=== PATIENT | female | born 1970 | race Caucasian/White ===

== ENCOUNTER 2021-08-25 13:43 | Outpatient (CLI) | payer OTHER ==
--- NOTE | 2021-09-01 16:06 | Mammography Report ---
BILATERAL DIGITAL SCREENING MAMMOGRAM 3D/2D: 08/25/2021 CLINICAL: Routine screening. No prior exams were available for comparison. There are scattered fibroglandular elements in both br easts. No significant masses, calcifications, or other findings are seen in either breast. IMPRESSION: NEGATIVE There is no mammographic evidence of malignancy. A 1 year screening mammogram is recommended. This exam was interpreted at Station ID: [id number]. NOTE: For mammograms, a report in lay terms will be sent to the patient. Approximately 15% of breast malignancies will not be visualized mammographically. In the management of a palpable breast mass, a negative mammogram must not discourage biopsy of a clinically suspicious lesion. Electronically Signed By: Kandis sher/alina:09/01/2021 10:43:29 ACR BI-RADS Category 1: Negative 3341F PARENCHYMAL PATTERN: (A) - The breast(s) demonstrate(s) scattered fibroglandular densities. BI-RADS CATEGORY: (1) - 1 RECOMMENDATION: (ANNUAL) - Recommend routine annual screening mammography. [id number] 1 year screening LATERALITY: (B)
== END 2021-08-25 13:44 | disposition home or self-care (01) ==
LOC: DI.N 13:43
PROVIDERS: ATTEND Family Medicine
DX: Z12.31 Encounter for screening mammogram for malignant neoplasm of breast (principal)

== ENCOUNTER 2022-06-30 11:22 | Emergency (ER) | payer OTHER ==
--- NOTE | 2022-06-30 11:55 | ED Physician Documentation ---
History of Present Illness - Stated complaint Stated Complaint: HIGH BP, HEADACHE - Chief complaint Chief Complaint: General - Additonal information Additional information: 51-year-old female comes emergency department for evaluation of headaches and hypertension. She reports a history of fibromyalgia. States that she has chronic headaches but the headaches over the last few weeks have been intense. She feels throbbing in her head. Motrin and Tylenol do not make it better. She does discuss that she is under inordinate stress and stress in the past has caused blood pressures for which she was briefly on amlodipine but then weaned off with normal blood pressures in between. Non-smoker. Social EtOH. Currently taking venlafaxine and trazodone for concerns of sleep and depression. No fevers, no slurred speech, no facial droop focal weakness in the arms or legs Reliable historian Review of Systems Constitutional: denies: Fever, Chills Eyes: reports: Reviewed and negative Ears: reports: Reviewed and negative Nose: reports: Reviewed and negative Throat: reports: Reviewed and negative Cardiac: reports: Reviewed and negative Respiratory: reports: Reviewed and negative Musculoskeletal: reports: Reviewed and negative Neurologic: reports: Headache. denies: Numbness, Difficulty speaking, Syncope, Seizure, Confused PD PAST MEDICAL HISTORY - Present Medications Home Medications: Ambulatory Orders Medication Instructions Recorded Confirmed amLODIPine [Norvasc] 10 mg PO DAILY #60 tablet 06/30/22 - Allergies Allergies/Adverse Reactions: Allergies Allergy/AdvReac Type Severity Reaction Status Date / Time codeine Allergy Rash Verified 06/30/22 11:30 celiac Allergy Unknown Uncoded 06/30/22 11:30 PD ED PE NORMAL - General General: Alert and oriented X 3, No acute distress, Well developed/nourished - HEENT HEENT: Atraumatic, Moist mucous membranes, Pharynx benign - Neck Neck: Supple, no meningeal sign, No adenopathy - Cardiac Cardiac: RRR, No murmur - Respiratory Respiratory: No respiratory distress, Clear bilaterally - Abdomen Abdomen: Normal bowel sounds, Soft - Back Back: No CVA TTP, No spinal TTP - Derm Derm: Normal color, Warm and dry - Extremities Extremities: No deformity, No tenderness to palpate - Neuro Neuro: Alert and oriented X 3, 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, No motor deficit, No sensory deficit, Normal speech Eye Opening: Spontaneous Motor: Obeys Commands Verbal: Oriented GCS Score: 15 Results - Vitals Vitals: Vital Signs - 24 hr 06/30/22 06/30/22 11:26 12:32 Temperature 36.4 C L Heart Rate 96 76 Respiratory 20 17 Rate Blood Pressure 189/128 H 156/116 H O2 Saturation 98 99 Oxygen O2 Source Room air - Labs Labs: Laboratory Tests 06/30/22 06/30/22 06/30/22 11:53 11:53 11:53 WBC 5.7 RBC 4.97 Hgb 14.1 Hct 43.7 MCV 87.9 MCH 28.4 MCHC 32.3 RDW 14.1 Plt Count 306 MPV 9.2 Neut # (Auto) 3.5 Lymph # (Auto) 1.8 [place] # (Auto) 0.3 Eos # (Auto) 0.1 Baso # (Auto) 0.1 Absolute Nucleated RBC 0.00 Nucleated RBC % 0.0 Sodium 139 Potassium 3.8 Chloride 104 Carbon Dioxide 27 Anion Gap 8.0 BUN 14 Creatinine 0.7 Estimated GFR (MDRD) 89 Glucose 103 H Calcium 9.6 Total Bilirubin 0.4 AST 34 ALT 33 Alkaline Phosphatase 89 Total Protein 6.8 Albumin 4.3 Globulin 2.5 Albumin/Globulin Ratio 1.7 Lipase 45 Serum HCG, Qual NEGATIVE - Rads (name of study) CT head Relevant Findings:: Final report received (No evidence of acute intracranial process) PD Medical Decision Making - ED course Complexity details: reviewed results, re-evaluated patient, considered differential, d/w patient ED course: 51-year-old female presents emergency department for evaluation of elevated blood pressures at home. Patient reports that historically she is only had elevated blood pressures during times of stress and recently at home they have been as high as 180/120. She is a non-smoker. Reports she has tolerated amlodipine well in the past. She does have a history of chronic headaches but the headaches over the last few weeks have been different and she feels a throb deb/pulsing sensation in her head. On presentation the emergency department she is well-appearing with no focal deficits. She is noted to be modestly hypertensive 186/112. The patient reports she has had difficulty establishing with a primary care provider that accepts . She would like to be resumed on amlodipine. But the headaches are worsening and is requesting a CT of the head. We did obtain screening CBC and electrolytes today and per my and interpretation there were no acute worrisome findings. A CT of the head was also completed which per the radiologist showed no acute intracranial findings. Given the normal neurological exam at this time patient is stable for discharge home. I will resume her on amlodipine. She feels that she can get in to see a primary care provider by August. I am advising her to check her blood pressures each day 1 hour following medication administration to keep a journal. Emergent return precautions were discussed for worsening symptoms Departure - Departure Disposition: Home, Self Care Clinical Impression: Elevated blood pressure reading Headache Qualifiers: Headache type: unspecified Headache chronicity pattern: episodic headache Intractability: not intractable Qualified Code(s): R51.9 - Headache, unspecified Prescriptions: amLODIPine [Norvasc] 10 mg PO DAILY #60 tablet Comments: You are seen today in the emergency department because you have concerns that with increased stressors you have been having increased blood pressures and now worsening headaches. The CT scan of your head was unremarkable. Your labs today in the emergency department were normal for age as well. I am it sounds like you have tolerated amlodipine well in the past for control of your blood pressure and I would make the recommendation that we resume taking that medicine today. This prescription has been sent to the [facility] in [place]. It is important that you follow closely with your primary care provider. If at any point you find that you have fainting episodes, uncontrolled vomiting, severe chest pain, shortness of air and please return immediately to the ER.
[2022-06-30 12:02] LABS: BASOPHILS # (AUTO) 0.1 10^3/uL (0.0-0.1); BASOPHILS % (AUTO) 1.1 %; EOSINOPHILS # (AUTO) 0.1 10^3/uL (0.0-0.7); EOSINOPHILS % (AUTO) 1.6 %; HCT - HEMATOCRIT 43.7 % (37.0-47.0); HGB - HEMOGLOBIN 14.1 g/dL (12.0-16.0); LYMPHOCYTES # (AUTO) 1.8 10^3/uL (1.5-3.5); LYMPHOCYTES % (AUTO) 31.1 %; MEAN CORPUSCULAR HEMOGLOBIN 28.4 pg (27.0-31.0); MEAN CORPUSCULAR HGB CONC 32.3 g/dL (32.0-36.0); MEAN CORPUSCULAR VOLUME 87.9 fL (81.0-99.0); MEAN PLATELET VOLUME 9.2 fL (7.9-10.8); MONOCYTES # (AUTO) 0.3 10^3/uL (0.0-1.0); MONOCYTES % (AUTO) 5.4 %; NEUTROPHILS # (AUTO) 3.5 10^3/uL (1.5-6.6); NEUTROPHILS % (AUTO) 60.6 %; PLT - PLATELET COUNT 306 10^3/uL (130-450); RED BLOOD COUNT 4.97 10^6/uL (4.20-5.40); RED CELL DISTRIBUTION WIDTH 14.1 % (12.0-15.0); WHITE BLOOD COUNT 5.7 x10^3/uL (4.8-10.8)
[2022-06-30 12:13] LABS: ALBUMIN 4.3 g/dL (3.2-5.5); ALBUMIN/GLOBULIN RATIO 1.7 (1.0-2.2); BILIRUBIN,TOTAL 0.4 mg/dL (0.2-1.0); CALCIUM 9.6 mg/dL (8.5-10.3); CREATININE 0.7 mg/dL (0.4-1.0); POTASSIUM 3.8 mmol/L (3.5-5.0); TOTAL PROTEIN 6.8 g/dL (6.7-8.2)
[2022-06-30 12:20] LABS: HCG,QUALITATIVE BLOOD NEGATIVE
--- NOTE | 2022-06-30 12:29 | CT Report ---
PROCEDURE: HEAD WO INDICATIONS: worsening HANEY, BP's TECHNIQUE: Noncontrast 4.5 mm thick angled axial sections acquired from the foramen magnum to the vertex. For r adiation dose reduction, the following was used: automated exposure control, adjustment of mA and/or kV according to patient size. COMPARISON: None. FINDINGS: Image quality: Excellent. CSF spaces: Basal cisterns are patent. No extra-axial fluid collections. Ventricles are normal in size and shape. Brain: No midline shift. No intracranial masses or hemorrhage. Rajput-white matter interface is norm al. Skull and face: Calvarium and visualized facial bones are intact, without suspicious lesions. Sinuses: Visualized sinuses and mastoids are clear. IMPRESSION: No evidence acute intracranial process. Reviewed by: Marcus Sauceda MD on 06/30/2022 12:28 PM PST Approved by: Marcus Sauceda MD on 06/30/2022 12:28 PM PST Station ID: [id number]
[2022-06-30 12:33] VITALS: BP 156/116
== END 2022-06-30 13:07 | disposition home or self-care (01) ==
LOC: ED 11:22
DX: R51.9 Headache, unspecified (principal); I10 Essential (primary) hypertension
CPT/HCPCS: 36415; 80053; 83690; 84703; 85025; 99284